=== PATIENT | male | born 1935 | race Two or more races ===

== ENCOUNTER 2018-12-03 22:14 | Inpatient (IN) | payer MEDICARE, MEDICAID ==
[~2018-12-03] VITALS: Ht 177.8 cm; Wt 43.6 kg
--- NOTE | 2018-12-03 22:30 | NUR ---
Pt bib rescue ambulance from [facility] with c/o fever, cough, sob. Pt is tachycardic, tachypneic & was saturating 81% room air per EMS. Pt is currently on 10L O2 via non-rebreather mask. Morgan catheter in place.Pt placed on continuous cardiac monitoring. Pt is awake, alert, oriented x2. Responsive to verbal + tactile stimuli. MD at bedside.
--- NOTE | 2018-12-03 22:32 | NUR ---
Pt also presents with 18 gauge saline lock to left AC placed by EMS.
--- NOTE | 2018-12-03 22:40 | NUR ---
Note undone in EDM - 12/03/18 at 2251 by DEBBIE Patient bib RA. Patient AAOX4. Speech clear, speaks in complete sentences. No neuro deficits noted. Patient brought in for c/o diarrhea for a few days now. Patient has hx of SIBO (small intestinal bacterial overgrowth). Denies any vomiting or nausea. Respiratory even and unlabored, no cough, no sob. No cardiovascular distress noted. Patient in bed lowest position, sr up x2, call light within reach. Patient accompanied by son at bedside. Fall precautions implemented per protocol.
[2018-12-03] MEDS ORDERED: FAMO20TA8 PO (22:46)
[2018-12-03] MEDS ORDERED: ALBU2.5V38 IH (22:46)
[2018-12-03] MEDS ORDERED: ENOX30DI SUBCUT (22:46)
[2018-12-03] MEDS ORDERED: IPRA0.2S6 NEB (22:46)
[2018-12-03] MEDS ORDERED: DOCU-141 PO (22:46)
[2018-12-03] MEDS ORDERED: POLY17PO4 PO (22:46)
[2018-12-03] MEDS ORDERED: CLON0.1T PO (22:46)
[2018-12-03] MEDS ORDERED: MULT1TAB73 PO (22:46)
[2018-12-03] MEDS ORDERED: SENN8.6T22 PO (22:46)
[2018-12-03] MEDS ORDERED: AMLO5TAB9 PO (22:46)
[2018-12-03] MEDS ORDERED: ACET-2154 PO (22:46)
[2018-12-03] MEDS ORDERED: [UNRECOGNIZED DRUG - REMARK] (22:47)
[2018-12-03] MEDS ORDERED: [UNRECOGNIZED DRUG - REMARK] (22:47)
[2018-12-03] MEDS ORDERED: SILVER SULFADIAZINE (22:47)
--- NOTE | 2018-12-03 22:47 | NUR ---
Waiting on lactic acid result & chest xray prior to fluid bolus per MD.
[2018-12-03 22:53] LABS: *BILIRUBIN,URIN NEGATIVE (NEGATIVE); *BLOOD, URINE 3+ (NEGATIVE); *CLARITY,URINE CLOUDY (CLEAR); *COLOR,URINE YELLOW (YELLOW); *KETONES,URINE NEGATIVE (NEGATIVE); *UROBILINOGEN,URINE 0.2 E.U./dl (NORMAL); LEUKOCYTE ESTERASE ,URINE 3+ (NEGATIVE); NITRITE, URINE NEGATIVE (NEGATIVE); UGLUCOSE NEGATIVE (NEGATIVE)
[2018-12-03 22:59] LABS: BASOPHILS # (AUTO) 0.1 K/uL (0.0-8.0); BASOPHILS % (AUTO) 0.2 % (0.0-2.0); HEMATOCRIT 32.9 % (36.7-47.1); HEMOGLOBIN 10.9 g/dL (12.5-16.3); LYMPHOCYTES # (AUTO) 0.2 K/uL (20.0-40.0); LYMPHOCYTES % (AUTO) 0.8 % (20.5-51.5); MEAN CORPUSCULAR HEMOGLOBIN 27.9 uug (23.8-33.4); MEAN CORPUSCULAR HGB CONC 33 g/dL (32.5-36.3); MEAN CORPUSCULAR VOLUME 84.5 fL (73.0-96.2); MONOCYTES # (AUTO) 0.2 K/uL (2.0-10.0); MONOCYTES % (AUTO) 0.6 % (0.0-11.0); NEUTROPHILS # (AUTO) 27.5 K/uL (1.8-8.9); NEUTROPHILS % (AUTO) 98.4 % (38.5-71.5); PLATELET COUNT (AUTO) 409 K/uL (152-348); RED BLOOD CELL COUNT(AUTO) 3.89 MIL/uL (4.06-5.63)
[2018-12-03] MEDS ORDERED: AZTREONAM 1 G in IV NORMAL SALINE 50 ML IV ONE (23:00)
[2018-12-03] MEDS ORDERED: AZITHROMYCIN IV 500 MG in IV DEXTROSE 5% 250 ML IV ONE (23:00)
[2018-12-03] MEDS ORDERED: MEROPENEM 1 G in IV NORMAL SALINE 100 ML IV ONE (23:00)
[2018-12-03] MEDS ORDERED: IV NORMAL SALINE 1000 ML BAG IV ONE (23:00)
[2018-12-03 23:04] LABS: CARBON DIOXIDE 22 mmol/L (21-32); CHLORIDE 102 mmol/L (98-107); CREATININE 1.8 mg/dL (0.6-1.3); GLUCOSE 132 mg/dL (74-106); POTASSIUM 4.3 mmol/L (3.5-5.1); UREA NITROGEN, BLOOD 34 mg/dL (7-18)
[2018-12-03 23:09] LABS: ALANINE AMINOTRANSFERASE 16 U/L (16-63); ALKALINE PHOSPHATASE 135 U/L (50-136); ASPARTATE AMINOTRANSFERASE 20 U/L (15-37); BILIRUBIN,DIRECT 0.4 mg/dL (0.0-0.2); BILIRUBIN,TOTAL 0.8 mg/dL (0.2-1.0); TOTAL PROTEIN, SERUM 7.5 g/dL (6.4-8.2)
[2018-12-03] MEDS ORDERED: AZTREONAM 1 G VIAL ONE (23:09)
--- NOTE | 2018-12-03 23:10 | NUR ---
IV fluid bolus infusing. Antibiotics infusing. Pt on continuous cardiac monitoring. Pt saturating 100% on 10 L via nonrebreather mask. Will continue to monitor.
[2018-12-03] MEDS ORDERED: MEROPENEM 1 G VIAL IV ONE (23:12)
[2018-12-03] MEDS ORDERED: AZITHROMYCIN 500 MG VIAL IV ONE (23:16)
[2018-12-03 23:18] LABS: BACTERIA,URINE MANY /HPF (NONE SEEN); RBC,URINE 80-100 /HPF (0-3); SQUAMOUS EPITHELIAL CELL,UR FEW /HPF (NONE SEEN); WBC,URINE 20-50 /HPF (0-3)
[2018-12-03 23:29] LABS: BAND % (MANUAL) 8 % (0-10); LYMPHOCYTES % (MANUAL) 1 % (20-40); NEUTROPHILS % (MANUAL) 91 % (42-75)
[2018-12-04] VITALS (70 sets, daily range): BP systolic 65–125; BP diastolic 32–78
[2018-12-04] MEDS ORDERED: LIDOCAINE 1%-EPI 1:100,000 20 ML VIAL ONE ×2 (00:02→00:14)
--- NOTE | 2018-12-04 00:25 | NUR ---
Awaiting call back from Dr. Banks.
--- NOTE | 2018-12-04 00:25 | NUR ---
Phone call to [facility] placed
--- NOTE | 2018-12-04 00:32 | NUR ---
Central line placed by Dr. Harrison. Informed consent obtained.
[2018-12-04] MEDS ORDERED: NOREPINEPHRINE BITARTRATE 4 MG/4 ML VIAL IV ONE (00:39)
[2018-12-04] MEDS ORDERED: NOREPINEPHRINE BITARTRATE 16 MG in IV DEXTROSE 5% 500 ML IV PRN (00:45)
[2018-12-04] MEDS ORDERED: IV NORMAL SALINE 1000 ML BAG IV ONE (01:00)
[2018-12-04] MEDS ORDERED: NOREPINEPHRINE BITARTRATE 8 MG in IV DEXTROSE 5% 500 ML IV PRN ×2 (01:00→02:15)
--- NOTE | 2018-12-04 01:01 | NUR ---
Dr. Harrison speaking to Dr. Bryan Banks on telephone.
--- NOTE | 2018-12-04 01:23 | NUR ---
Pt. admitted to CCU BED 3, under care of Dr. Bryan Banks. Diagnosis: Sepsis. Belongs List completed. MRSA swab done. Report given to CCU nurses.
--- NOTE | 2018-12-04 01:25 | NUR ---
Dr. Adams at bedside.
--- NOTE | 2018-12-04 01:45 | NUR ---
Received pt in ICU/CCU unit BED 3, under the care of MD OLMAN. Pt AxO x2 to name and place, has episodes of confusion. Cough reflex present. Pt on nonrebreather mask at 10L/min saturating at 99%. Pt non-labored breathing, no respiratory distress noted. Femoral triple lumen cath intact. Levophed running at 5 mcg/min. Tele placed and noted to be ST with HR of 101. F/C in place. Pertinent assessments done, belongings list completed. Aspiration precautions and comfort measures observed. Continue to monitor closely.
[2018-12-04] MEDS ORDERED: NOREPINEPHRINE BITARTRATE 4 MG in IV DEXTROSE 5% 250 ML IV ONE (02:00)
[2018-12-04] MEDS ORDERED: MORPHINE SULFATE 2 MG/1 ML DISP.SYRIN IV PRN (02:00)
[2018-12-04] MEDS ORDERED: ACETAMINOPHEN 650 MG SUPP.RECT RC PRN (02:00)
[2018-12-04] MEDS ORDERED: LEVALBUTEROL HCL NEB 0.63 MG/3 ML NEBU NEB PRN (02:00)
[2018-12-04] MEDS ORDERED: ONDANSETRON 4 MG/2 ML VIAL IV PRN (02:00)
[2018-12-04] MEDS: IV D5/ 0.9% NACL 1,000 ML IV PRN ×2 (02:08→18:50)
--- NOTE | 2018-12-04 02:15 | NUR ---
Pt attempting to take off nonrebreather mask. Placed pt on simple mask at 6L/min. O2 sat at 93%. Will continue to monitor.
[2018-12-04] MEDS ORDERED: Z GUARD REMEDY PASTE 57 GM TUBE TOP PRN (02:45)
[2018-12-04] MEDS ORDERED: VANCOMYCIN IV 200 ML ONE (02:53)
[2018-12-04] MEDS ORDERED: VANCOMYCIN IV 1 G in PREMIXED 0 EACH IV SCH (03:00)
--- NOTE | 2018-12-04 05:30 | NUR ---
F/C changed same size FR 16. Noted bleeding upon insertion. Pt noted to be receiving anticoagulants at [facility]. Resistance noted but once pt relaxed, F/C placed. Pt tolerated procedure fairly well. AM care provided. Sacral wound care done, dressing changed, Mepilex placed for protection.
[2018-12-04 06:13] LABS: BASOPHILS # (AUTO) 0.2 K/uL (0.0-8.0); BASOPHILS % (AUTO) 0.5 % (0.0-2.0); EOSINOPHILS % (AUTO) 0.1 % (0.0-7.0); HEMATOCRIT 25.3 % (36.7-47.1); HEMOGLOBIN 8.2 g/dL (12.5-16.3); LYMPHOCYTES # (AUTO) 0.5 K/uL (20.0-40.0); LYMPHOCYTES % (AUTO) 1.4 % (20.5-51.5); MEAN CORPUSCULAR HEMOGLOBIN 27.6 uug (23.8-33.4); MEAN CORPUSCULAR HGB CONC 33 g/dL (32.5-36.3); MONOCYTES # (AUTO) 0.2 K/uL (2.0-10.0); MONOCYTES % (AUTO) 0.4 % (0.0-11.0); NEUTROPHILS # (AUTO) 38.2 K/uL (1.8-8.9); NEUTROPHILS % (AUTO) 97.6 % (38.5-71.5); PLATELET COUNT (AUTO) 276 K/uL (152-348); RED BLOOD CELL COUNT(AUTO) 2.98 MIL/uL (4.06-5.63)
[2018-12-04 06:23] LABS: WHITE BLOOD COUNT (AUTO) 39.2 K/uL (3.6-10.2)
[2018-12-04 06:37] LABS: THYROID STIMULATING HORMONE 2.547 mIU/mL (0.358-3.740)
--- NOTE | 2018-12-04 06:38 | NUR ---
Call made to on-call doctor, OLMAN PARIS regarding critical lab values: WBC 39.2 and Lactic Acid 6.0. Awaiting call back at this time
[2018-12-04 06:42] LABS: ALANINE AMINOTRANSFERASE 16 U/L (16-63); ALKALINE PHOSPHATASE 92 U/L (50-136); ASPARTATE AMINOTRANSFERASE 13 U/L (15-37); BILIRUBIN,TOTAL 0.5 mg/dL (0.2-1.0); CARBON DIOXIDE 18 mmol/L (21-32); CHLORIDE 103 mmol/L (98-107); CHOLESTEROL 68 mg/dL (<200); CREATININE 1.9 mg/dL (0.6-1.3); GLUCOSE 242 mg/dL (74-106); HDL CHOLESTEROL 36 mg/dL (40-60); MAGNESIUM 1.8 mg/dL (1.8-2.4); PHOSPHOROUS 2.8 mg/dL (2.5-4.9); POTASSIUM 4.2 mmol/L (3.5-5.1); TOTAL PROTEIN, SERUM 5.9 g/dL (6.4-8.2); TRIGLYCERIDES 27 MG/DL (30-150); UREA NITROGEN, BLOOD 33 mg/dL (7-18)
--- NOTE | 2018-12-04 06:45 | NUR ---
Call back from MD OLMAN regarding critical lab values and urinary retention of 769 mL via bladder scanner. Also notified MD, despite new hoffman cath placement, pt continues to retain urine. MD states will follow up with pt, no new orders at this time. Continue to monitor.
[2018-12-04 06:59] LABS: BAND % (MANUAL) 12 % (0-10); NEUTROPHILS % (MANUAL) 67 % (42-75)
[2018-12-04 07:00] LABS: LYMPHOCYTES % (MANUAL) 13 % (20-40); MONOCYTES % (MANUAL) 8 % (2-10)
[2018-12-04] MEDS: Z GUARD REMEDY PASTE 57 GM TUBE TOP SCH ×2 (07:59→20:14)
[2018-12-04] MEDS: PANTOPRAZOLE SODIUM 40 MG VIAL IV SCH (07:59)
[2018-12-04] MEDS: MEROPENEM 500 MG in IV NORMAL SALINE 50 ML IV SCH ×2 (08:05→20:10)
--- NOTE | 2018-12-04 08:47 | NUR ---
Clinical Pharmacy Note: Vancomycin Dosing per Pharmacy Subjective: Vancomycin IV to start on this 83 yo male patient for documented infection " (sepsis, pna per ER physician note) Objective: BUN 33/Scr 1.9 WBC 39.2 Temperature 97.8 ht 177.8 cm wt 40 kg Assessment/Plan: Patient received vanco 1gm IVPB x1 today at 0300 in ED. Due to elevated srcr, will dose by fall off level. Plan to check vanco random level today at 1800. Pharmacy shall review the level for further dosing. Will follow daily. Addendum: 12/04/18 at 2031 by SKYE ALONSO ADM VANCOMYCIN TROUGH CAME BACK @ 11.1 WILL GIVE ANOTHER VANCOMYCIN DOSE OF 750 MG X 1 AND CK LEVEL TOMORROW
--- NOTE | 2018-12-04 08:49 | NUR ---
US tech here to see pt for 2D Echocardiogram.
--- NOTE | 2018-12-04 09:00 | NUR ---
SERVICE STATION MANAGER Shane Flores here to see pt. Full report given. New orders received and carried out.
[2018-12-04] MEDS ORDERED: IV NORMAL SALINE 500 ML IV ONE (09:15)
[2018-12-04] MEDS: NOREPINEPHRINE BITARTRATE 16 MG in IV DEXTROSE 5% 500 ML IV PRN (09:17)
--- NOTE | 2018-12-04 10:33 | NUR ---
Dr. Aleman here to see pt. Full report given. New orders received.
[2018-12-04] MEDS ORDERED: DOSING PER PHARMACY-AMIKACIN IV XX PRN (12:15)
--- NOTE | 2018-12-04 12:47 | NUR ---
Clinical Pharmacy Note: Amikacin Dosing per Pharmacy Subjective: Amikacin IV dosing to start for this 83 yo male for ID recommended (waiting for ID notes) Objective: BUN 33/Scr 1.9 WBC 39.2 Temperature 97.4 ht 177 cm wt 40 kg ADW 40 kg Assessment/Plan: Due to elevated srcr, will dose by fall off level. Will give amikacin 200 mg IVPB x1 today at 1400. Plan to draw amikacin random level with am labs tomorrow. Pharmacy shall review the level in am & re-dose if needed. Will continue to follow.
--- NOTE | 2018-12-04 13:09 | NUR ---
WOUND CARE CONSULT: PT PRESENTS WITH HEALING WOUND TO SACRUM, PRESENT ON ADMISSION. PT IS VERY THIN AND BONY. RECOMMENDATIONS MADE FOR SKIN PROTECTION AND WOUND CARE. DISCUSSED WITH NURSING STAFF. FIRST STEP LOW AIRLOSS MATTRESS ON ORDER. WILL SEE PRN. PARIS IN AGREEMENT WITH PLAN OF CARE. CURRENT ARANZA SCORE IS 11. Addendum: 12/04/18 at 1310 by SHIRA COLUNGA RN Amended: Links added.
[2018-12-04 13:59] LABS: *BILIRUBIN,URIN NEGATIVE (NEGATIVE); *BLOOD, URINE 3+ (NEGATIVE); *CLARITY,URINE TURBID (CLEAR); *COLOR,URINE DARK YELLOW (YELLOW); *KETONES,URINE NEGATIVE (NEGATIVE); *UROBILINOGEN,URINE 0.2 E.U./dl (NORMAL); LEUKOCYTE ESTERASE ,URINE 3+ (NEGATIVE); NITRITE, URINE NEGATIVE (NEGATIVE); PH,URINE 5.5 (5.0-8.0); UGLUCOSE NEGATIVE (NEGATIVE)
[2018-12-04] MEDS ORDERED: AMIKACIN 200 MG in IV DEXTROSE 5% 100 ML IV ONE (14:00)
--- NOTE | 2018-12-04 14:03 | NUR ---
US tech here to see pt for US kidneys.
[2018-12-04 14:06] LABS: *CREATININE,URINE 88.9 mg/dL (30-125); *URINE TOTAL PROTEIN RANDOM 89.7 mg/dL (<150/24HR)
[2018-12-04 14:16] LABS: BACTERIA,URINE MANY /HPF (NONE SEEN); SQUAMOUS EPITHELIAL CELL,UR FEW /HPF (NONE SEEN); WBC,URINE 80-100 /HPF (0-3)
[2018-12-04] MEDS: MICAFUNGIN SODIUM 100 MG in IV NORMAL SALINE 100 ML IV SCH (14:43)
--- NOTE | 2018-12-04 15:18 | NUR ---
Speech therapist here to see pt for swallow eval. Addendum: 12/04/18 at 1536 by SHEMAR LANDIS RN Pureed diet per speech therapist recommendations.
[2018-12-04 16:16] LABS: IRON, SERUM 6 ug/dL (50-175)
[2018-12-04 16:21] LABS: ABG BASE EXCESS -2.8 mmol/L; ABG HCO3 21.6 mmol/L; ABG PCO2 35.6 mmHg (35.0-45.0); ABG PH 7.401 (7.350-7.450); ABG PO2 84.9 mmHg (75.0-100.0); ABG SITE RIGHT RADIAL; ABG TOTAL HEMOGLOBIN 9.3 G/dL (13.5-18.0); COHb 0.9 % (0.5-1.5); MetHb 0.5 % (0.0-1.5)
--- NOTE | 2018-12-04 19:45 | NUR ---
Received pt HOB elevated, alert and oriented to name and place, able to follow simple commands. Cough reflex present. Lower extremities severe weakness. Pt on 3L NC saturating at 96%. Respirations non-labored, regular. No acute respiratory distress noted. Tele noted to be SR with HR 96. LEVOPHED drip running at 10 mcg/min. On CVP monitoring, ranging from 4 - 6 mmHG. Assessment completed. Pt turned and repositioned. Reorientation and redirection provided. Aspiration precautions and safety measures initiated. Will continue to monitor. Addendum: 12/04/18 at 2002 by LORI OJEDA RN Amended: Links added.
[2018-12-04] MEDS: IPRATROPIUM BROMIDE 0.5 MG/2.5 ML NEBU NEB PRN (20:31)
[2018-12-04] MEDS: ALBUTEROL SULFATE 2.5 MG/3 ML NEBU NEB PRN (20:31)
[2018-12-04] MEDS ORDERED: VANCOMYCIN IV 750 MG in IV DEXTROSE 5% 250 ML IV ONE (21:00)
[2018-12-05] VITALS (73 sets, daily range): BP systolic 87–128; BP diastolic 37–108
[2018-12-05] MEDS: ALBUTEROL SULFATE 2.5 MG/3 ML NEBU NEB PRN (03:45)
[2018-12-05] MEDS: IPRATROPIUM BROMIDE 0.5 MG/2.5 ML NEBU NEB PRN (03:45)
--- NOTE | 2018-12-05 05:20 | NUR ---
Offered bed bath/AM care to pt at this time. Pt refuses and prefers to sleep and "not be disturbed." Will endorse to day shift nurse.
[2018-12-05 05:27] LABS: BASOPHILS % (AUTO) 0.1 % (0.0-2.0); HEMOGLOBIN 7.8 g/dL (12.5-16.3); MEAN CORPUSCULAR HEMOGLOBIN 27.6 uug (23.8-33.4); MONOCYTES # (AUTO) 0.8 K/uL (2.0-10.0); MONOCYTES % (AUTO) 1.9 % (0.0-11.0)
[2018-12-05 05:30] LABS: HEMATOCRIT 23.8 % (36.7-47.1); LYMPHOCYTES # (AUTO) 0.9 K/uL (20.0-40.0); LYMPHOCYTES % (AUTO) 2.1 % (20.5-51.5); MEAN CORPUSCULAR HGB CONC 33 g/dL (32.5-36.3); MEAN CORPUSCULAR VOLUME 84.2 fL (73.0-96.2); NEUTROPHILS # (AUTO) 41.2 K/uL (1.8-8.9); NEUTROPHILS % (AUTO) 95.9 % (38.5-71.5); PLATELET COUNT (AUTO) 187 K/uL (152-348); RED BLOOD CELL COUNT(AUTO) 2.83 MIL/uL (4.06-5.63)
[2018-12-05 05:32] LABS: ALANINE AMINOTRANSFERASE 12 U/L (16-63); ALKALINE PHOSPHATASE 85 U/L (50-136); ASPARTATE AMINOTRANSFERASE 15 U/L (15-37); BILIRUBIN,TOTAL 0.4 mg/dL (0.2-1.0); CARBON DIOXIDE 23 mmol/L (21-32); CHLORIDE 108 mmol/L (98-107); CREATINE KINASE, TOTAL 45 U/L (39-308); CREATININE 0.8 mg/dL (0.6-1.3); GLUCOSE 99 mg/dL (74-106); MAGNESIUM 1.8 mg/dL (1.8-2.4); PHOSPHOROUS 2.2 mg/dL (2.5-4.9); POTASSIUM 3.5 mmol/L (3.5-5.1); TOTAL PROTEIN, SERUM 5.3 g/dL (6.4-8.2); UREA NITROGEN, BLOOD 21 mg/dL (7-18)
--- NOTE | 2018-12-05 06:24 | NUR ---
Call made to on-call doctor, OLMAN PARIS regarding critical lab values: WBC 43 and albumin 1.4. Awaiting call back at this time. Continue to monitor.
--- NOTE | 2018-12-05 06:33 | NUR ---
INFORMATION SENT: FACESHEET,ADMIT ORDER , H&P,ER NOTES,CONSULTATION,PROGRESS NOTES 12/04,UR- 12/04,VITALS, IMAGEING. INSURANCE NAME: MIRA JUAN FOR [employer] FAX NUMBER: [phone] FAX SENT
--- NOTE | 2018-12-05 06:46 | NUR ---
Received call back from MD OLMAN regarding critical lab values. No new orders received, will follow up with pt. Will continue to monitor and endorse plan of care to day shift nurse.
[2018-12-05] MEDS: IV D5/ 0.9% NACL 1,000 ML IV PRN (06:56)
[2018-12-05 07:04] LABS: BAND % (MANUAL) 5 % (0-10); LYMPHOCYTES % (MANUAL) 1 % (20-40); MONOCYTES % (MANUAL) 9 % (2-10); NEUTROPHILS % (MANUAL) 85 % (42-75)
[2018-12-05] MEDS: Z GUARD REMEDY PASTE 57 GM TUBE TOP SCH ×2 (07:32→21:08)
[2018-12-05] MEDS: PANTOPRAZOLE SODIUM 40 MG VIAL IV SCH (07:32)
[2018-12-05 08:16] LABS: ABG BASE EXCESS -1.3 mmol/L; ABG HCO3 22.1 mmol/L; ABG PCO2 31.9 mmHg (35.0-45.0); ABG PH 7.459 (7.350-7.450); ABG PO2 81.3 mmHg (75.0-100.0); ABG SITE RIGHT RADIAL; ABG TOTAL HEMOGLOBIN 8.7 G/dL (13.5-18.0); COHb 1.2 % (0.5-1.5); MetHb 0.4 % (0.0-1.5); O2Hb 94.4 % (94.0-97.0); VENT MODE Nasal Cannula
[2018-12-05] MEDS: MEROPENEM 500 MG in IV NORMAL SALINE 50 ML IV SCH ×2 (08:47→20:15)
--- NOTE | 2018-12-05 09:07 | NUR ---
Dr. Aleman here to see pt. Full report given. New orders received.
[2018-12-05] MEDS: NOREPINEPHRINE BITARTRATE 16 MG in IV DEXTROSE 5% 500 ML IV PRN (09:50)
[2018-12-05] MEDS ORDERED: AMIKACIN 200 MG in IV DEXTROSE 5% 100 ML IV SCH (10:00)
--- NOTE | 2018-12-05 10:15 | NUR ---
Clinical Pharmacy Note: Vancomycin & Amikacin Dosing per Pharmacy Subjective: Vancomycin IV & Amikacin IV to continue on this 83 yo male patient for sepsis, pna Objective: BUN 21/Scr 0.8 WBC 43 Temperature 97.6 ht 177.8 cm wt 40 kg Assessment/Plan: Since Srcr decreased (from 1.9 yesterday to 0.8 today), will start vanco 750mg IVPB q32h for predicted vanco trough level of 16 mcg/ml at steady state. 1st dose was on 12/04 at 2200. Plan to draw vanco trough level before 4 th dose (not yet ordered). Will follow daily. Addendum: 12/05/18 at 1020 by HARLEEN ANSARI Also, will start Amikacin 200 mg IVPB q14 h for predicted peak of 23.7 mcg/ml & trough level of 5.7 mcg/ml at steady state. 1st dose today at 1000. Plan to draw peak & trough level around 4th dose (when pharmacy is open- not yet ordered). Will continue to follow Addendum: 12/05/18 at 1637 by HARLEEN ANSARI CHANGED AMIKACIN TO GENTAMICIN PATIENT HAD A DOSE OF AMIKACIN TODAY AT 1000 WILL START GENTAMICIN 50 MG IVPB Q13H FOR PREDICTED PEAK OF 6 & TROUGH OF 1.6 MCG/ML AT STEADY STATE. 1ST DOSE TODAY AT 2300. PLAN TO CHECK PEAK & TROUGH LEVEL (NOT YET ORDERED). WILL MONITOR RENAL FUNCTION & ADJUST THE DOSE IF NEEDED. WILL FOLLOW UP
--- NOTE | 2018-12-05 10:20 | NUR ---
Dr. Smith here to see pt. Full report given. No new orders received.
[2018-12-05] MEDS: POTASSIUM PHOSPHATE MM 5 MMOL in IV DEXTROSE 5% 100 ML IV SCH ×4 (10:30→18:42)
--- NOTE | 2018-12-05 12:42 | NUR ---
Dr. Chisholm here to see pt. Full report given. No new orders received.
[2018-12-05] MEDS: MICAFUNGIN SODIUM 100 MG in IV NORMAL SALINE 100 ML IV SCH (12:47)
--- NOTE | 2018-12-05 13:36 | NUR ---
Physical therapy here to see pt.
[2018-12-05] MEDS: GENTAMICIN SULFATE IV SCH (22:07)
[2018-12-05] MEDS: DEXTROSE 5% IV SCH (22:07)
[2018-12-06] VITALS (14 sets, daily range): BP systolic 95–132; BP diastolic 49–69
[2018-12-06 04:44] LABS: BASOPHILS % (AUTO) 0.1 % (0.0-2.0); EOSINOPHILS # (AUTO) 0.1 K/uL (0.0-0.7); EOSINOPHILS % (AUTO) 0.5 % (0.0-7.0); HEMOGLOBIN 8.3 g/dL (12.5-16.3); LYMPHOCYTES # (AUTO) 0.9 K/uL (20.0-40.0); LYMPHOCYTES % (AUTO) 3.5 % (20.5-51.5); MEAN CORPUSCULAR HEMOGLOBIN 27.7 uug (23.8-33.4); MEAN CORPUSCULAR HGB CONC 33 g/dL (32.5-36.3); MEAN CORPUSCULAR VOLUME 83.7 fL (73.0-96.2); MONOCYTES # (AUTO) 0.5 K/uL (2.0-10.0); MONOCYTES % (AUTO) 1.8 % (0.0-11.0); NEUTROPHILS # (AUTO) 25.1 K/uL (1.8-8.9); NEUTROPHILS % (AUTO) 94.1 % (38.5-71.5); PLATELET COUNT (AUTO) 133 K/uL (152-348); RED BLOOD CELL COUNT(AUTO) 2.99 MIL/uL (4.06-5.63); WHITE BLOOD COUNT (AUTO) 26.6 K/uL (3.6-10.2)
[2018-12-06 04:55] LABS: CARBON DIOXIDE 27 mmol/L (21-32); CHLORIDE 106 mmol/L (98-107); CREATININE 0.6 mg/dL (0.6-1.3); GLUCOSE 109 mg/dL (74-106); MAGNESIUM 1.6 mg/dL (1.8-2.4); PHOSPHOROUS 1.9 mg/dL (2.5-4.9); UREA NITROGEN, BLOOD 16 mg/dL (7-18)
[2018-12-06 05:15] LABS: BAND % (MANUAL) 6 % (0-10); LYMPHOCYTES % (MANUAL) 3 % (20-40); MONOCYTES % (MANUAL) 4 % (2-10); NEUTROPHILS % (MANUAL) 87 % (42-75)
[2018-12-06] MEDS ORDERED: VANCOMYCIN IV 750 MG in IV DEXTROSE 5% 250 ML IV SCH (06:00)
--- NOTE | 2018-12-06 07:28 | NUR ---
INFORMATION SENT: FACESHEET,UR 12/05,PROGRESS NOTES,CONSULTATION,24 HOURS REPORT INSURANCE NAME: IMMANUELMICHAEL DRAKE FOR [employer] FAX NUMBER: [phone] FAX SENT
--- NOTE | 2018-12-06 07:30 | NUR ---
RECIEVED PT LYING IN BED WITH HOB UP 1T 35DEGREES. AWAKE, ALERT AND ORIENTED TOHIS NAME AND VERY FORGETFUL. VERY PLEASANT. MOVES ALL EXTREMETIES WELL BUT PT IS STILL WEAK. COLOR IS SLIGHTLY PALE. SPEECH CLEAR. SR NO ECTOPY. TRIPLE LUMEN LINE ON THE RIGHT FEMORAL SITE CLEAN. PATENT AND INTACT. HL ON BOTH AC IN PLACE AND INTACT. IVF INFUSING WELL AT 80ML/HR RIGHT FEMORAL LINE. CVP IS OFF AT THIS TIME. AFEBRILE.
--- NOTE | 2018-12-06 08:30 | NUR ---
O2 AT 3LNC, SAT 97-98%. NO APPARENT RESPIRATORY DISTRESS NOTED. PT IS COUGHNINGON AND OFF PRODUCTIVE YELLOWISH PHLEGM SMALL AMOUNT. MINIMU ASSIST WITH BREAKFAST, SWALLOWS GOOD. VSS. NO EDEMA NOTED.
[2018-12-06] MEDS: MAGNESIUM SULFATE/D5W 100 ML IV SCH ×2 (08:33→09:45)
[2018-12-06] MEDS: PANTOPRAZOLE SODIUM 40 MG VIAL IV SCH (08:33)
[2018-12-06] MEDS: Z GUARD REMEDY PASTE 57 GM TUBE TOP SCH ×2 (08:34→20:33)
[2018-12-06] MEDS: NEUTRA PHOS PACKET PO SCH ×3 (08:34→16:10)
--- NOTE | 2018-12-06 09:00 | NUR ---
PT ON FIRST STEP MATTRESS. MEPELEX ON THE COCCYX AREA INTACT, FULL THICKNESS AND WOUND CAREIMPLEMENTED.
[2018-12-06] MEDS: MEROPENEM 500 MG in IV NORMAL SALINE 50 ML IV SCH (09:16)
[2018-12-06] MEDS: IV D5/ 0.9% NACL 1,000 ML IV PRN (09:22)
--- NOTE | 2018-12-06 09:30 | NUR ---
SEEN AND EXAMINED BY DR VICKERS , NO ORDERS MADE.
--- NOTE | 2018-12-06 10:00 | NUR ---
MAGNESIUM SULFATE 2GMS IVPB INFUSED ORDERED. MAG LEVEL 1.6. NEUTRAPHOS 1 PACKET GIVEN ORALLY ORDERED FOR LOW PHOS, PT TOLERATED WELL.
--- NOTE | 2018-12-06 10:30 | NUR ---
SEEN AND EXAMINED BY DR SAM. PINO TO DOWNGRADE PT TO TELEMETRY. QUILTER FIXER MADE AWARE.
--- NOTE | 2018-12-06 11:30 | NUR ---
REPORT GIVEN TO PORTILLO YOUNG.
[2018-12-06] MEDS: DEXTROSE 5% IV SCH (11:48)
[2018-12-06] MEDS: GENTAMICIN SULFATE IV SCH (11:48)
--- NOTE | 2018-12-06 11:59 | NUR ---
bedside report received by rn. Carmela Rey. pt. taken up to room 306. AAOx1-2 forgetful, slightly confused. vitals stable. no c.of pain TLC right femoral infusing with last dose of magnesium replacement.
--- NOTE | 2018-12-06 12:00 | NUR ---
PT TRANSFEED TO RM 306 VIA BED. CONDITION IS STABLE.
[2018-12-06 14:08] LABS: A/G RATIO 0.6 (0.7-1.7); ALBUMIN 1.8 g/dL (2.9-4.4); ALPHA-1-GLOBULIN 0.4 g/dL (0.0-0.4); ALPHA-2-GLOBULIN 0.7 g/dL (0.4-1.0); BETA GLOBULIN 0.7 g/dL (0.7-1.3); GAMMA GLOBULIN 1.1 g/dL (0.4-1.8); GLOBULIN, TOTAL 2.9 g/dL (2.2-3.9); M-SPIKE 0.3 g/dL (Not Observed)
--- NOTE | 2018-12-06 15:59 | NUR ---
Clinical Pharmacy Note: Gentamicin Dosing per Pharmacy Subjective: Gentamicin IV to continue on this 83 yo male patient for sepsis, pna. Vancomycin d/c'd today Objective: BUN 16/Scr 0.6 WBC 26.6 Temperature 98.4 ht 177.8 cm wt 40 kg Assessment/Plan: Will continue gentamicin 50mg IVPB q13h for predicted peak of 6 and trough of 1.6. 2nd dose today at 1200. Trough and peak ordered 30min before and after 4th scheduled dose, due tomorrow at 1330 and 1530 respectively. Will check levels tomorrow when available. Will follow
[2018-12-07] VITALS: BP 110/54
[2018-12-07 00:11] VITALS: BP 110/54
[2018-12-07] MEDS: DEXTROSE 5% IV SCH ×2 (00:20→14:03)
[2018-12-07] MEDS: GENTAMICIN SULFATE IV SCH ×2 (00:20→14:03)
--- NOTE | 2018-12-07 03:45 | NUR ---
INFORMATION SENT:FACESHEET,UR-12/06,PROGRESS NOTES,VITALS,24 HOURS FAXED TO: MIRA JUAN FOR [employer] ; [phone] FAXED BY: REBECA
[2018-12-07] MEDS: IV D5/ 0.9% NACL 1,000 ML IV PRN (05:57)
[2018-12-07 06:23] VITALS: BP 132/62
[2018-12-07] MEDS: PANTOPRAZOLE SODIUM 40 MG TABLET.DR PO SCH (06:36)
[2018-12-07 07:14] LABS: BASOPHILS % (AUTO) 0.2 % (0.0-2.0); EOSINOPHILS # (AUTO) 0.1 K/uL (0.0-0.7); EOSINOPHILS % (AUTO) 0.6 % (0.0-7.0); HEMOGLOBIN 9.6 g/dL (12.5-16.3); LYMPHOCYTES # (AUTO) 1.1 K/uL (20.0-40.0); LYMPHOCYTES % (AUTO) 6.1 % (20.5-51.5); MEAN CORPUSCULAR HEMOGLOBIN 27.6 uug (23.8-33.4); MEAN CORPUSCULAR HGB CONC 33 g/dL (32.5-36.3); MEAN CORPUSCULAR VOLUME 83.4 fL (73.0-96.2); MONOCYTES # (AUTO) 0.4 K/uL (2.0-10.0); MONOCYTES % (AUTO) 2.6 % (0.0-11.0); NEUTROPHILS # (AUTO) 15.6 K/uL (1.8-8.9); NEUTROPHILS % (AUTO) 90.5 % (38.5-71.5); PLATELET COUNT (AUTO) 139 K/uL (152-348); RED BLOOD CELL COUNT(AUTO) 3.48 MIL/uL (4.06-5.63); WHITE BLOOD COUNT (AUTO) 17.2 K/uL (3.6-10.2)
[2018-12-07 07:46] LABS: CARBON DIOXIDE 31 mmol/L (21-32); CHLORIDE 104 mmol/L (98-107); CREATININE 0.7 mg/dL (0.6-1.3); GLUCOSE 87 mg/dL (74-106); MAGNESIUM 1.7 mg/dL (1.8-2.4); PHOSPHOROUS 2.1 mg/dL (2.5-4.9); POTASSIUM 4.9 mmol/L (3.5-5.1); UREA NITROGEN, BLOOD 14 mg/dL (7-18)
[2018-12-07] MEDS: Z GUARD REMEDY PASTE 57 GM TUBE TOP SCH ×2 (08:24→22:18)
[2018-12-07 11:23] VITALS: BP 104/49
--- NOTE | 2018-12-07 11:48 | NUR ---
Clinical Pharmacy Note: Gentamicin Dosing per Pharmacy Subjective: Gentamicin IV to continue on this 83 yo male patient for sepsis, pna. Objective: BUN 14/Scr 0.7 WBC 17.2 Temperature 98.6 ht 177.8 cm wt 40 kg Assessment/Plan: Will continue gentamicin 50mg IVPB q13h for predicted peak of 6 and trough of 1.6. 3rd dose today at 0100. Trough and peak ordered 30min before and after 4th scheduled dose, due today at 1330 and 1530 respectively. Will check levels when available. Will follow Addendum: 12/07/18 at 1617 by GILMER BEYER ADM GENTAMICIN TROUGH 0.5 TODAY AT 1330 AND PEAK 1.7 AT 1530. SINCE GENTAMICIN PEAK IS UNEXPECTEDLY LOW, WILL REPEAT TOMORROW AT 0430(AFTER 5TH DOSE) AND FOLLOW THE LEVEL
[2018-12-07 15:30] VITALS: BP 108/56
[2018-12-07] MEDS ORDERED: NEUTRA PHOS PACKET PO ONE (15:45)
[2018-12-07] MEDS: MAGNESIUM SULFATE/D5W 100 ML IV SCH ×2 (16:32→17:40)
--- NOTE | 2018-12-07 18:45 | NUR ---
PATIENT RESTING IN BED, NO DISTRESS NOTED OR COMPLAINTS OF PAIN. PATIENT APPEARS COMFORTABLE. SAFETY PRECAUTIONS IMPLEMENTED. WILL ENDORSE CARE TO ONCOMING SHIFT.
--- NOTE | 2018-12-07 19:00 | NUR ---
Received patient awake in bed, resting comfortably. No complaints of pain or acute distress. Central line patent and intact. All safety measures in place. VS wnl and patient is stable. Will continue to monitor.
--- NOTE | 2018-12-07 19:46 | NUR ---
FEMORAL TRIPLE LUMEN DRESSING CHANGED, STERILE TECHNIQUE USED WITH SUPERVISION FROM FILM LOADER. DRESSING CLEAN AND INTACT, LINE IN PLACE AND PATENT.
[2018-12-07 20:01] VITALS: BP 112/60
[2018-12-08 00:41] VITALS: BP 107/53
[2018-12-08] MEDS: DEXTROSE 5% IV SCH (02:06)
[2018-12-08] MEDS: GENTAMICIN SULFATE IV SCH (02:06)
[2018-12-08 04:00] VITALS: BP 108/56
[2018-12-08 05:18] LABS: BASOPHILS % (AUTO) 0.3 % (0.0-2.0); EOSINOPHILS # (AUTO) 0.2 K/uL (0.0-0.7); EOSINOPHILS % (AUTO) 1.9 % (0.0-7.0); HEMATOCRIT 25.6 % (36.7-47.1); HEMOGLOBIN 8.5 g/dL (12.5-16.3); LYMPHOCYTES # (AUTO) 0.8 K/uL (20.0-40.0); LYMPHOCYTES % (AUTO) 8.3 % (20.5-51.5); MEAN CORPUSCULAR HEMOGLOBIN 27.8 uug (23.8-33.4); MEAN CORPUSCULAR HGB CONC 33 g/dL (32.5-36.3); MEAN CORPUSCULAR VOLUME 83.6 fL (73.0-96.2); MONOCYTES # (AUTO) 0.6 K/uL (2.0-10.0); MONOCYTES % (AUTO) 5.7 % (0.0-11.0); NEUTROPHILS # (AUTO) 8.4 K/uL (1.8-8.9); NEUTROPHILS % (AUTO) 83.8 % (38.5-71.5); PLATELET COUNT (AUTO) 131 K/uL (152-348); RED BLOOD CELL COUNT(AUTO) 3.06 MIL/uL (4.06-5.63)
[2018-12-08 05:28] LABS: CARBON DIOXIDE 29 mmol/L (21-32); CHLORIDE 104 mmol/L (98-107); CREATININE 0.6 mg/dL (0.6-1.3); GLUCOSE 130 mg/dL (74-106); MAGNESIUM 2.2 mg/dL (1.8-2.4); POTASSIUM 4.8 mmol/L (3.5-5.1); UREA NITROGEN, BLOOD 16 mg/dL (7-18)
--- NOTE | 2018-12-08 05:39 | NUR ---
INFORMATION SENT: FACESHEET,UR-12/07,PROGRESS NOTES,CONSULTATION,24 HOURS REPORT INSURANCE NAME: IMMANUELMICHAEL DRAKE FOR [employer] FAX NUMBER: [phone] FAX SENT
[2018-12-08] MEDS: IV D5/ 0.9% NACL 1,000 ML IV PRN (06:41)
[2018-12-08] MEDS: PANTOPRAZOLE SODIUM 40 MG TABLET.DR PO SCH (06:41)
--- NOTE | 2018-12-08 07:02 | NUR ---
Patient slept comfortably through night. VS are wnl and patient is stable. Left femoral PICC line is patent and intact. All nursing care provided in a timely manner and tolerated well. Report provided to AM nurse.
[2018-12-08 08:00] VITALS: BP 119/52
[2018-12-08] MEDS: Z GUARD REMEDY PASTE 57 GM TUBE TOP SCH (08:11)
--- NOTE | 2018-12-08 10:40 | NUR ---
At this time moderate amount of blood noted to be coming out from Penis this discovery done by lm Mcintosh while changing diaper. Upon assessment no blood noted through catheter. Dr. Smith currently in the unit and call in to examine patient. Orders to dcd hoffman catheter received and implemented at this time.
[2018-12-08 11:10] VITALS: BP 108/52
--- NOTE | 2018-12-08 11:33 | NUR ---
Clinical Pharmacy Note: Gentamicin Dosing per Pharmacy Subjective: Gentamicin IV to continue on this 83 yo male patient for sepsis, pna, uti Objective: BUN 16/Scr 0.4 WBC 10 Temperature 98.3 Genatmicin peak: 2.9 (drawn on 12/08 at 0430) ht 177.8 cm wt 40 kg Assessment/Plan: Will continue gentamicin 50mg IVPB q13h for now. 0300 dose was given 1 hr earlier at 0200 on 12/08 (Peak not accurate). Will repeat both Gentamicin peak & trough around 1600 dose today (will coordinate with nurse). Pharmacy shall review the level & adjust the dose if needed. Will follow
--- NOTE | 2018-12-08 15:00 | NUR ---
[facility] called telephone report given to Keara Eden. Rn. informed that pt. will going at 1530. vitals stable and medication reconcile by Dr. Smith and orders to dcd IV medications. IV line dcd. pharmacist aware. Sacral area with stage III picture taken. hoffman catheter dcd and pt. voiding via diaper. No more bleeding noted at penis area. pt. stable to leave unit as ordered.
[2018-12-08 15:14] VITALS: BP 120/61
--- NOTE | 2018-12-08 16:50 | NUR ---
Patient left via ambulance. AAOX4. vitals stable all documentation with pt. completion of dcd done by chargeback analyst.
--- NOTE | 2018-12-11 08:14 | NUR ---
INFORMATION SENT: FACESHEET,DISCHARGE SUMMARY,UR-12/08,24 HOURS REPORT INSURANCE NAME:MIRA LUCASAVA FOR [employer] FAX NUMBER: [phone] FAX SENT
== END 2018-12-08 16:45 | DRG 871 ==
LOC: ER 22:17 → CCU 12-04 01:14 → TELE3 12-06 11:35 → MEDSURG3 12-08 12:14
PROVIDERS: ADMIT Internal Medicine; ATTEND Internal Medicine
PROC: 06HY33Z Insertion of Infusion Device into Lower Vein, Percutaneous Approach (ICD-10-PCS; principal; 2018-12-04)
DX: A41.51 Sepsis due to Escherichia coli [E. coli] (principal); R65.21 Severe sepsis with septic shock; N17.0 Acute kidney failure with tubular necrosis; E43 Unspecified severe protein-calorie malnutrition; G92 Toxic encephalopathy; J96.21 Acute and chronic respiratory failure with hypoxia; I21.A1 Myocardial infarction type 2; J69.0 Pneumonitis due to inhalation of food and vomit; N39.0 Urinary tract infection, site not specified; Z68.1 Body mass index [BMI] 19.9 or less, adult; D68.59 Other primary thrombophilia; I13.0 Hypertensive heart and chronic kidney disease with heart failure and stage 1 through stage 4 chronic kidney disease, or unspecified chronic kidney disease; E87.2 Acidosis; Z16.11 Resistance to penicillins; Z16.23 Resistance to quinolones and fluoroquinolones; R62.7 Adult failure to thrive; Z74.09 Other reduced mobility; D50.9 Iron deficiency anemia, unspecified; F03.90 Unspecified dementia, unspecified severity, without behavioral disturbance, psychotic disturbance, mood disturbance, and anxiety; N40.1 Benign prostatic hyperplasia with lower urinary tract symptoms; Z88.6 Allergy status to analgesic agent; Z88.1 Allergy status to other antibiotic agents; Z88.0 Allergy status to penicillin; N18.9 Chronic kidney disease, unspecified; I70.0 Atherosclerosis of aorta; I50.9 Heart failure, unspecified; E83.42 Hypomagnesemia; I11.0 Hypertensive heart disease with heart failure; E83.39 Other disorders of phosphorus metabolism; I25.10 Atherosclerotic heart disease of native coronary artery without angina pectoris; Z90.49 Acquired absence of other specified parts of digestive tract; Z87.891 Personal history of nicotine dependence; J44.9 Chronic obstructive pulmonary disease, unspecified
CPT/HCPCS: 36415; 36556; 36600; 70030-TC; 71045; 71250; 76770; 82378; 83550; 83605; 83735; 83970; 84100; 84155; 84156; 84165; 84300; 84443; 85025; 87040; 87070; 87077; 87086; 87400; 92526; 92610; 93005; 93307; 94640; 94664; 97110; 97116; 97530; A4663; C1751; C9113; G0378; J0278; J0456; J1580; J2185; J2248; J2270; J2405; J3370; J3475; J3490; J3590; J7030; J7040; J7042; J7060; J7614